=== PATIENT | male | born 1945 | race Caucasian/White ===

== ENCOUNTER 2025-11-05 00:31 | Observation (INO) | payer MEDICARE, SELFPAY ==
[2025-11-05] VITALS (17 sets, daily range): BP systolic 130–208; BP diastolic 69–102; PULSE 60–78; RESP 18–20; TEMP 36.6–37.2; O2SAT 94–98; BMI 27.3; BMI 25.6
--- NOTE | 2025-11-05 00:30 | CT_ITS ---
PROCEDURE INFORMATION: Exam: CT Head Without Contrast Exam date and time: 11/05/2025 12:51 AM Age: 80 years old Clinical indication: Syncope and collapse; Additional info: Syncope, suspect vagal but hypertensive TECHNIQUE: Imaging protocol: Computed tomography of the head without contrast. Radiation optimization: All CT scans at this facility use at least one of these dose optimization techniques: automated exposure control; mA and/or kV adjustment per patient size (includes targeted exams where dose is matched to clinical indication); or iterative reconstruction. COMPARISON: No relevant prior studies available. FINDINGS: Brain: There is mild enlargement of the cortical sulci compatible with compatible with involutional changes . No evidence of mass effect or midline shift. Patchy areas of hypodensity without mass-effect in the periventricular white matter . The alva/white matter interfaces are preserved. There are no extra-axial fluid collections.The basal cisterns are patent. Cerebral ventricles: No hydrocephalus. Paranasal sinuses: Mucosal thickening of the right maxillary sinus. Well aerated. No fluid levels. Mastoid air cells: Visualized mastoid air cells are well aerated. Bones: Unremarkable. No acute fracture. Soft tissues: Unremarkable. IMPRESSION: 1. No evidence of intracranial hemorrhage, mass effect, midline shift or hydrocephalus. 2. Involutional changes. 3. 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 4. Mucosal thickening of the right maxillary sinus.
--- NOTE | 2025-11-05 00:30 | XR_ITS ---
PROCEDURE INFORMATION: Exam: XR Chest Exam date and time: 11/05/2025 12:48 AM Age: 80 years old Clinical indication: Other: Syncope TECHNIQUE: Imaging protocol: Radiologic exam of the chest. Views: 2 views. COMPARISON: No relevant prior studies available. FINDINGS: Lungs: Unremarkable. No consolidation. Pleural spaces: Unremarkable. No pleural effusion. No pneumothorax. Heart/Mediastinum: Unremarkable. No cardiomegaly. Vasculature: Atherosclerotic disease of the aortic arch. Bones/joints: Unremarkable. IMPRESSION: No acute findings.
--- NOTE | 2025-11-05 00:32 | CT_ITS ---
PROCEDURE INFORMATION: Exam: CT Cervical Spine Without Contrast Exam date and time: 11/05/2025 12:56 AM Age: 80 years old Clinical indication: Injury or trauma; Fall; Other: Syncope; Additional info: Fall unwittness syncope TECHNIQUE: Imaging protocol: Computed tomography of the cervical spine without contrast. Radiation optimization: All CT scans at this facility use at least one of these dose optimization techniques: automated exposure control; mA and/or kV adjustment per patient size (includes targeted exams where dose is matched to clinical indication); or iterative reconstruction. COMPARISON: CT HEAD/BRAIN WO CON 11/05/2025 12:51 AM FINDINGS: Bones: No acute fracture. Normal alignment. Disc desiccation and dorsal/lateral osteophytes. No disc herniation. No severe spinal canal stenosis. Foraminal narrowing at C5-C6 and C6-C7. Lungs: Lung apices are normal. Soft tissues: Unremarkable. IMPRESSION: 1. No acute cervical spine fracture. 2. Degenerative changes as described above.
--- OUTSIDE RECORDS SUMMARY | 2025-11-05 00:40 | XMS_ITS | Data Portability ---
Author Organization [facility] [place] [facility] Address [address] [place] [address] Care Team Providers Care Editorial Manager Name Role Phone SUNILCAMRYNCLARENCE Primary Care Provider [phone] MITESH SAINZ Hearing Officer Assessment No assessment recorded. Plan of Treatment Reminders Order Date Submit Date Provider Last Modified By Organization Details Last Modified Time Details Appointments DERM ESTABLISH ED 2025 01:50P M MITESH SAINZ PA-C Not available Not available Not available Lab None recorded. Referral None recorded. Procedures None recorded. Surgeries None recorded. Imaging None recorded. Medication Orders None recorded. Patient TargetsNo targets recorded. Patient InstructionsNo instructions recorded. Reason for Referral None Reported. 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 Lexis Ashby [facility] 3 13:10:49 Multiple benign melanocytic nevi 708086133 [facility] 13:10:49 Seborrheic keratosis 887523776 Active 2022 Lexis Ashby [facility] 3 13:10:49 Scar 921067750 Active 2023 Lexis Ashby [facility] 4 10:17:12 Actinic keratosis 746834672 Active 2023 Lexis santos [facility] 4 10:19:41 Skin tag 464429525 Active 2023 Lexis santos [facility] 4 11:53:53 History of malignant neoplasm of skin 435942783 Active 2024 Lizabeth Vaughn [facility] 5 11:33:26 Problem Notes None recorded. Procedures Surgical History Date Name Laterality Status Provider Name and Address Organization Details Recorded Time 5 DAK - Cryo AK completed Lizabeth Xavierl [facility] 09/06/2025 11:35:44 5 DAK - Cryo AK completed Lizabeth Vaughn [facility] 03/08/2025 11:48:20 4 DAK - Cryo AK [facility]24 11:52:44 4 DAK - Skin Tag Removal completed Lexisjessica Ashby [facility] 08/29/2024 11:53:45 4 DAK - Cryo AK [facility] 02/15/2024 10:19:31 3 DAK - ED&C; trunk,arm,leg completed [facility] 10/07/2023 13:45:22 3 Biopsy Skin Lesion; Tangential completed [facility] 09/16/2023 13:32:28 3 DAK - Cryo AK completed [facility] 09/16/2023 13:41:29 3 Shave Lesion; trunk, arm, leg completed [facility] 09/16/2023 13:29:40 extraction of cataract completed Ela Rico [facility] 02/15/2024 10:00:30 Imaging Results None recorded. Procedure Notes None recorded. Medical Equipment None Reported. Allergies No known drug allergies Medications Name Sig Start Date Stop Date Status Note LastModified by Organization Details LastModified Time doxycycline hyclate 100 mg capsule Take 1 capsule twice a day by oral route with meal(s) for 5 days. 02/14 completed Not Available Not Available Not Available aspirin active Not Available Not Avail able Not Available carvedilol active Not Available Not Av ailable Not Available hydralazine active Not Available Not A vailable Not Available simvastatin active Not Available Not A vailable Not Available losartan active Not Available Not Avai lable Not Available glimepiride active Not Available Not A vailable Not Available Multi Vitamin active Not Available Not Available Not Available Vitals None Recorded Social History Question Answer Notes LastModified by Organizat ion Details LastModified Time Tobacco Smoking Status Never Smoker Lexis Asbhy [facility] 09/16/2023 13:13:24 Sunscreen Use? Yes [email or web address] Informatio n not available 09/16/2023 Tanning Bed Use Yes Previous Information not available 09/16/2023 What Was The Date Of Your Most Recent Tobacco Screening? 09/06/2025 [email or web address] Information not available 09/06/2025 Sex: Male Functional Status Question Answer Note LastModified by Organizat ion Details LastModified Time Do you use any illicit or recreational drugs? No [email or web address] Information not available 09/16/2023 What is your level of alcohol consumption? Occasional [email or web address] Information not available 09/16/2023 Mental Status None recorded. Family History Relationship Description Onset Age of this Age Resolved Age Notes LastModified by Organization Details LastModified Time Father No current problems or disability [email or web address] Not available 02/09 11:33:52 Mother No current problems or disability [email or web address] Not available 02/09 11:33:52 Medical History Condition Response Squamous Cell Carcinoma N Acne N Skin Problems N Other Skin Condition N Varicose Veins N Autoimmune disease N Eczema N Melanoma N Basal Cell Carcinoma Y Skin Cancer Y Past Encounters Encounter ID Performer Location Encounter Start Date Encounter Closed Date Diagnosis/Indication Diagnosis SNOMED-CT Code Diagnosis ICD10 Code Diagnosis IMO Codes Diagnosis Note [id number] MITESH SAINZ PA-C [place] [address] [place] [address] 09/16/2023 12:57:35 09/16/2023 13:57:04 Multiple benign melanocytic nevi 093552754 D22.5 - Benign moles seen on exam today - SPF 30 or higher broad-spec trum sunscreen recommende d with re-applica tion every 2 hours - Discussed sun protection measures, including wide-brimm ed hat, sun-protec tive clothing, and avoidance of sun during peak hours of 10am-4pm - Avoid tanning beds as these can increase the chances of all 3 types of skin cancer - Instructed to monitor for changes and to call us for appointmen t with any changing or worrisome lesions Seborrheic keratosis 394 280190 L82.1 - Benign overgrowth s of skin - Hereditary Senile angioma 7229167 I 78.1 - Benign blood vessel growths - Hereditary Solar lentigo 36835791 L 81.4 - Benign brown spots - Sun-induce d Epidermoid cyst of skin 257772211 L72.0 Cysts are dilated follicles with keratinous material within. Can become inflamed if they rupture. Risks, benefits, side effects, alternativ es and options of excision were discussed with patient and the patient voiced understand ing. Rec no treatment if not bothersome . If it starts to change or become painful let us know. Neoplasm of skin 3434373 04 D49.2 Left Scapula @ T5. Tangential biopsy. R/o: BCC vs. SCC.[place] e Abdomen. Tangential biopsy. R/o: BCC.Left Forearm. Shave removal. R/o: MM vs. SK.Left Neck. Tangential biopsy. R/o: SCC vs. BCC (Mohs if +). Actinic keratosis 007 L57.0 Actinic keratoses are precancero us lesions that may progress to squamous cell carcinoma if untreated. UV light and genetics may increase risk. Treated lesions should blister, scab over, and heal within a few weeks. If treated lesion(s) does not resolve within 1-2 months, patient agrees to follow up for re-evaluat ion. [id number] MITESH SAINZ PA-C [address] [address] 10/07/2023 13:07:23 10/07/2023 13:51:28 Basal cell carcinoma of back 995455487 C44.519 Superficia l BCC - L scapula at t5.Path#: [id number]. ED&C today. Basal cell carcinoma of abdomen 044619602 C44.519 Superficia l BCC - Midline abdomenPat h#: [id number]. ED&C today. Basal cell carcinoma of neck 708376946 C44.41 Left neck - Nodular BCC.Pt is scheduled for Mohs on 01/15/2024 .Pt may call to inquire about a sooner Mohs appt.He reports he will plan on 01/14 surgery for now. [id number] JUAN F REARDON MD [address] [address] 11/13/2023 09:32:24 11/23/2023 11:36:50 [id number] MITESH SAINZ PA-C [address] [address] 02/15/2024 09:46:42 02/15/2024 10:24:44 History of malignant neoplasm of skin 634249694 Z85.828 - 09/2023- No evidence of recurrence today- Call with any worrisome lesions or if treated lesions return- Return at regular intervals for skin exam as recommende d Multiple b enign melanocytic nevi 128536105 D22.5 - Benign moles seen on exam today - SPF 30 or higher broad-spec trum sunscreen recommende d with re-applica tion every 2 hours - Discussed sun protection measures, including wide-brimm ed hat, sun-protec tive clothing, and avoidance of sun during peak hours of 10am-4pm - Avoid tanning beds as these can increase the chances of all 3 types of skin cancer - Instructed to monitor for changes and to call us for appointmen t with any changing or worrisome lesions Seborrheic keratosis 394 664466 L82.1 - Benign overgrowth s of skin - Hereditary Senile angioma 4284569 I 78.1 - Benign blood vessel growths - Hereditary Solar lentigo 87170716 L 81.4 - Benign brown spots - Sun-induce d Scar 720787567 L90.5 Well healing skin at sites of previous ED&C's on abdomen, left scapula.Mo hs site on left neck also well healed. Will f/u with Mohs team as planned. Actinic keratosis 227863 007 L57.0 Actinic keratoses are precancero us lesions that may progress to squamous cell carcinoma if untreated. UV light and genetics may increase risk. Treated lesions should blister, scab over, and heal within a few weeks. If treated lesion(s) does not resolve within 1-2 months, patient agrees to follow up for re-evaluat ion. [id number] JUAN F REARDON MD [address] [address] 02/19/2024 09:01:48 02/22/2024 04:08:14 History of malignant neoplasm of skin 428793295 Z85.828 No evidence of recurrence . Discussed risk of recurrence and new skin cancers, so regular self exam and profession al skin checks are recommende d. Sun protection with broad spectrum SPF 30 sunscreen and broad-brim med hat is recommende d. Sun protection with SPF 30 broad spectrum sunscreen and protective gear discussed. Postoperative visit 1836 02119 Z09 Scar 829365390 L90.5 Rec he get 6 mo fbse regularly [id number] MITESH SAINZ PA-C [address] [address] 08/29/2024 10:55:04 08/29/2024 12:17:58 History of malignant neoplasm of skin 665389954 Z85.828 - 09/2023- No evidence of recurrence today- Call with any worrisome lesions or if treated lesions return- Return at regular intervals for skin exam as recommende d Multiple b enign melanocytic nevi 887042142 D22.5 - Benign moles seen on exam today - SPF 30 or higher broad-spec trum sunscreen recommende d with re-applica tion every 2 hours - Discussed sun protection measures, including wide-brimm ed hat, sun-protec tive clothing, and avoidance of sun during peak hours of 10am-4pm - Avoid tanning beds as these can increase the chances of all 3 types of skin cancer - Instructed to monitor for changes and to call us for appointmen t with any changing or worrisome lesions Seborrheic keratosis 394 213307 L82.1 - Benign overgrowth s of skin - Hereditary Senile angioma 8442088 I 78.1 - Benign blood vessel growths - Hereditary Solar lentigo 46171152 L 81.4 - Benign brown spots - Sun-induce d Actinic keratosis 007 L57.0 Actinic keratoses are precancero us lesions that may progress to squamous cell carcinoma if untreated. UV light and genetics may increase risk. Treated lesions should blister, scab over, and heal within a few weeks. If treated lesion(s) does not resolve within 1-2 months, patient agrees to follow up for re-evaluat ion. Skin tag 191185168 L91.8 L53.8 Skin tags are benign but may be bothersome . Removal with liquid nitrogen is an option. This may leave discolorat ion, or the tag may persist or recur at the treatment site. [id number] MITESH SAINZ PA-C [address] [address] 03/08/2025 10:52:13 03/08/2025 11:53:34 History of malignant neoplasm of skin 928284205 Z85.828 - 09/2023- No evidence of recurrence today- Call with any worrisome lesions or if treated lesions return- Return at regular intervals for skin exam as recommende d Multiple b enign melanocytic nevi 160511593 D22.5 - Benign moles seen on exam today - SPF 30 or higher broad-spec trum sunscreen recommende d with re-applica tion every 2 hours - Discussed sun protection measures, including wide-brimm ed hat, sun-protec tive clothing, and avoidance of sun during peak hours of 10am-4pm - Avoid tanning beds as these can increase the chances of all 3 types of skin cancer - Instructed to monitor for changes and to call us for appointmen t with any changing or worrisome lesions Seborrheic keratosis 394 814773 L82.1 - Benign overgrowth s of skin - Hereditary Senile angioma 8565040 I 78.1 - Benign blood vessel growths - Hereditary Solar lentigo 95836480 L 81.4 - Benign brown spots - Sun-induce d Actinic keratosis 007 L57.0 54689 Actinic keratoses are precancero us lesions that may progress to squamous cell carcinoma if untreated. UV light and genetics may increase risk. Treated lesions should blister, scab over, and heal within a few weeks. If treated lesion(s) does not resolve within 1-2 months, patient agrees to follow up for re-evaluat ion. [id number] MITESH SAINZ PA-C [address] [address] 09/06/2025 10:36:13 09/06/2025 12:21:10 History of malignant neoplasm of skin 300859686 Z85.828 - 09/2023 - 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- No evidence of recurrence today- Call with any worrisome lesions or if treated lesions return- Return at regular intervals for skin exam as recommende d Multiple b enign melanocytic nevi 968566900 D22.5 - Benign moles seen on exam today - SPF 30 or higher broad-spec trum sunscreen recommende d with re-applica tion every 2 hours - Discussed sun protection measures, including wide-brimm ed hat, sun-protec tive clothing, and avoidance of sun during peak hours of 10am-4pm - Avoid tanning beds as these can increase the chances of all 3 types of skin cancer - Instructed to monitor for changes and to call us for appointmen t with any changing or worrisome lesions Seborrheic keratosis 394 959376 L82.1 - Benign overgrowth s of skin - Hereditary Senile angioma 4773848 I 78.1 - Benign blood vessel growths - Hereditary Solar lentigo 39633187 L 81.4 - Benign brown spots - Sun-induce d Actinic keratosis 280886 007 L57.0 47751 Actinic keratoses are precancero us lesions that may progress to squamous cell carcinoma if untreated. UV light and genetics may increase risk. Treated lesions should blister, scab over, and heal within a few weeks. If treated lesion(s) does not resolve within 1-2 months, patient agrees to follow up for re-evaluat ion. Epidermoid cyst of skin 051259937 L72.0 33650 Cysts are dilated follicles with keratinous material within. Can become inflamed if they rupture. Risks, benefits, side effects, alternativ es and options of excision were discussed with patient and the patient voiced understand ing. Rec no treatment if not bothersome . If it starts to change or become painful let us know. Health Concerns Section Related Observation LastModified by Organization Paolo ls LastModified Time None Recorded Concern Status LastModified by Organization Details LastModified Time None Recorded Advance Directives Directive None Recorded Payers Insurance Date Sequence Insurance Name Policy Number Policy Briones Covered Member ID Briones Member ID Guarantor Name 09/03/2025 1 [place] ([place] Jose Luis R [facility] [id number] [facility] 09/11/2025 2 [employer] (MEDICARE SUPPLEMENT) Jose Luis R [facility] [id number] Jose Luis Hunter 10/30/2023 1 *SELF PAY* Ca lvin Hunter Notes Date Note Type Note Provider Name and Address Organization Details Recorded Time 02/15/2024 text/html I am following up on lesionsMidline Abdomen, Left Scapula @ E3Udaxyb proven Sup BCCReports: still red 5 months after ED&C MITESH SAINZ PA-C [address] [place], [address], [facility] 02/15/2024 12:55:43 02/19/2024 text/html ROS as noted in the HPI Here for a follow upMOHS: 4BCCLeft NeckO-Y adv. Flap Marily Lama [facility] 02/19/2024 10:22:59 08/29/2024 text/html Last visit 4Pt is here for 6m fbseHx of BCC - most recent rea of concern: skin tag would like removed if possible MITESH SAINZ PA-C [address] [place], [address], [facility] 08/30/2024 12:19:13 03/08/2025 text/html ROS as noted in the HPI Patient requests a full body skin exam. Location: Full bodyDuration: 6 monthsHistory: BCC (L scapula @T5, L neck, midline abdomen - 09/2023)Areas of concern: no concerns MITESH SAINZ PA-C [address] [place], [address], [facility] 03/10/2025 14:38:37 09/06/2025 text/html Patient requests a FBSE. L ocation: Full bodyLast Skin Check: 03/08/25 (KIET)Hx of 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 (09/16/23) tx w/ ED&C (10/07/23), L neck (09/16/23) tx w/ Mohs (11/13/23)Areas of concern: none MITESH SAINZ PA-C [address] [place], [address], [facility] 09/07/2025 19:44:25
--- OUTSIDE RECORDS SUMMARY | 2025-11-05 00:40 | XMS_ITS | Continuity of Care Document ---
Author Organization [facility] Address [address] [place] [address] Care Team Providers Care Lease Picker Name Role Phone SUNILCLARENCE Primary Care Provider MITESH SAINZ Assembler Erector Assessment No assessment recorded. Plan of Treatment Reminders Order Date Submit Date Provider Last Modified By Organization Details Last Modified Time Details Appointments DERM ESTABLISH ED 2025 01:50P M MITESH SAINZ PAKellie Not available Not available Not available Lab None recorded. Referral None recorded. Procedures None recorded. Surgeries None recorded. Imaging None recorded. Medication Orders None recorded. Patient TargetsNo targets recorded. Patient InstructionsNo instructions recorded. Reason for Referral None Reported. 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 Lexis Ashby [facility] 3 13:10:49 Multiple benign melanocytic nevi 978834001 Active 2022 Lexis Ashby [facility] 3 13:10:49 Seborrheic keratosis 607171289 Active 2022 Lexis Ashby [facility] 3 13:10:49 Scar 142267400 Active 2023 Lexis Ashby [facility] 4 10:17:12 Actinic keratosis 973685254 Active 2023 Lexis Ashby danielle [facility] 4 10:19:41 Skin tag 779361243 Active 2023 Lexis Ashby danielle [facility] 4 11:53:53 History of malignant neoplasm of skin 001906839 [facility] 11:[facility]26 Problem Notes None recorded. Procedures Surgical History Date Name Laterality Status Provider Name and Address Organization Details Recorded Time 5 DAK - Cryo AK completed Lizabeth Xavierl [facility] 09/06/2025 11:35:44 5 DAK - Cryo AK completed Lizabeth Vaughn [facility] 03/08/2025 11:48:20 4 DAK - Cryo AK [facility]/29/2024 11:52:44 4 DAK - Skin Tag Removal completed Lexis Ashby [facility] 08/29/2024 11:53:45 4 DAK - Cryo AK completed Lexisjessica Ashby [facility] 02/15/2024 10:19:31 3 DAK - ED&C; trunk,arm,leg completed [facility] 10/07/2023 13:45:22 3 Biopsy Skin Lesion; Tangential completed [facility] 09/16/2023 13:32:28 3 DAK - Cryo AK completed [facility] 09/16/2023 13:41:29 3 Shave Lesion; trunk, arm, leg completed [facility] 09/16/2023 13:29:40 extraction of cataract completed Ela Rico [facility] 02/15/2024 10:00:30 Imaging Results None recorded. Procedure [...] Time Tobacco Smoking Status Never Smoker Lexis Ashby [facility] 09/16/2023 13:13:24 Sunscreen Use? Yes [email or web address] Informatio n not available 09/16/2023 Tanning Bed Use Yes Previous [email or web address] Information not available 09/16/2023 What Was The Date Of Your Most Recent Tobacco Screening? 09/06/2025 [email or web address] Information not available 09/06/2025 Sex: Male Functional Status Question Answer Note LastModified by Organizat ion Details LastModified Time Do you use any illicit or recreational drugs? No [email or web address] Information not available 09/16/2023 What is your level of alcohol consumption? Occasional [email or web address] Information not available 09/16/2023 Mental Status None recorded. Family History Relationship Description Onset Age of this Age Resolved Age Notes LastModified by Organization Details LastModified Time Father No current problems or disability [email or web address] Not available 02/09 11:33:52 Mother No current problems or disability [email or web address] Not available 02/09 11:33:52 Medical History Condition Response Autoimmune disease N Melanoma N Skin Cancer Y Squamous Cell Carcinoma N Acne N Skin Problems N Other Skin Condition N Varicose Veins N Eczema N Basal Cell Carcinoma Y Past Encounters Encounter ID Performer Location Encounter Start Date Encounter Closed Date Diagnosis/Indication Diagnosis SNOMED-CT Code Diagnosis ICD10 Code Diagnosis IMO Codes Diagnosis Note [id number] MITESH SAINZ PA-C [address] [address] [place] [address] 09/06/2025 10:36:13 09/06/2025 12:21:10 History of malignant neoplasm of skin 858850248 Z85.828 - 09/2023 - 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- No evidence of recurrence today- Call with any worrisome lesions or if treated lesions return- Return at regular intervals for skin exam as recommende d Multiple b enign melanocytic nevi 931021678 D22.5 - Benign moles seen on exam [...] changing or worrisome lesions Seborrheic keratosis 394 065323 L82.1 - Benign overgrowth s of skin - Hereditary Senile angioma 8253744 I 78.1 - Benign blood vessel growths - Hereditary Solar lentigo 35670886 L 81.4 - Benign brown spots - Sun-induce d Actinic keratosis 222092 007 L57.0 10596 Actinic keratoses are precancero us lesions that may progress to squamous cell carcinoma if untreated. UV light and genetics may increase risk. Treated lesions should blister, scab over, and heal within a few weeks. If treated lesion(s) does not resolve within 1-2 months, patient agrees to follow up for re-evaluat ion. Epidermoid cyst of skin 123828179 L72.0 69183 Cysts are dilated follicles with keratinous material within. Can become inflamed if they rupture. Risks, benefits, side effects, alternativ es and options of excision were discussed with patient and the patient voiced understand ing. Rec no treatment if not bothersome . If it starts to change or become painful let us know. Health Concerns Section Related Observation LastModified by Organization Detai ls LastModified Time None Recorded Concern Status LastModified by Organization Details LastModified Time None Recorded Payers Encounter Date Sequence Insurance Name Policy Number Policy Briones Covered Member ID Briones Member ID Guarantor Name 09/06/2025 1 [place]ARE[place] Jose Luis R Campbell [id number] 1 Jose Luis Hunter 09/06/2025 2 [employer] (MEDICARE SUPPLEMENT) Jose Luis R Hunter [id number] Jose Luis Campbell Notes Date Note Type Note Provider Name and Address Organization Details Recorded Time 09/06/2025 text/html Patient requests a FBSE. L ocation: Full bodyLast Skin Check: 03/08/25 (KIET)Hx of 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 (09/16/23) tx w/ ED&C (10/07/23), L neck (09/16/23) tx w/ Mohs (11/13/23)Areas of concern: none MITESH SAINZ PA-C [address] [place], [address], [facility] 09/07/2025 19:44:25
--- NOTE | 2025-11-05 00:45 | HMH.EDGENADL ---
Discharge Plan Disposition Condition: Good Referrals Follow up/Referrals: Mehrdad Dubon MD [Staff Physician, Cardiology] - See instructions Referral Note: had syncope, has HTN, reassuring ER workup but found mildly reduced EF on POCUS Provider,Referral, [Primary Care Provider, Medical] - See instructions Clinical Impressions Clinical Impression: Syncope, Hypoglycemia Print Language Print Language: Irish Discharge ED Provider: Bo Guillen General Adult HPI General Chief complaint: Chest Pain Stated complaint: syncope Time Seen by Provider: 11/05/25 00:41 History of Present Illness HPI narrative: 80-year-old male with history of hypertension, high cholesterol, diabetes not on insulin presents to the ER after syncopal episode. EMS brought the patient to the hospital. Reportedly he has been sick for the last 5 days with nausea, vomiting, diarrhea. In the last 24 hours he has had no episodes of vomiting or diarrhea so he actually went out and about today for the first time in multiple days. He thinks he just overdid it but also did not have much to eat or drink today. He states he only had a sandwich earlier today and nothing else by mouth. Patient reports he went to the restroom thinking he was going to vomit, but he woke up on the floor. Reportedly the patient's was not able to get him up off the floor and so she had called her son who came to get the patient up. When EMS arrived on scene they stated he was still slightly confused, fingerstick blood glucose with them was 78 so EMS administered half bag of D10 and patient had immediate improvement back to baseline. No other medications were administered at that time or during transportation. Patient denies having any chest pain or headache preceding or after the syncopal episode. He states he has never had chest pain and has no heart problems aside from hypertension. He has not had any vomiting or diarrhea. No fevers or chills. No other associated symptoms. He states he feels 100% back to baseline and thinks it was just a problem with him not eating enough earlier today. Related Data Allergies Allergy/AdvReac Type Severity Reaction Status Date / Time No Known Allergies Allergy Verified 11/05/25 01:02 [facility] Disclaimer: The information contained in this section may have been updated after the patient was seen, as this information can be updated by other users. Social History Smoking Status: Never smoker alcohol intake: never current occupational status: other Travel in the last 8 weeks?: None ROS Obtained: Yes Systems reviewed as appropriate & no additional complaints except as documented Per HPI Physical Exam General General appearance: alert and in no apparent distress Head Head exam: atraumatic and normocephalic Eye Eye exam: Present PERRL and EOMI ENT ENT exam: Present mucous membranes moist Neck Neck exam: Present normal inspection and full ROM; Absent tenderness Chest Chest inspection: Present symmetric chest wall rise; Absent tenderness Respiratory Respiratory exam: Present normal lung sounds bilaterally; Absent respiratory distress, wheezes or stridor Cardiovascular Cardiovascular exam: Present regular rate and normal rhythm Abdominal Exam Abdominal exam: Present soft; Absent distention, tenderness, guarding or rebound Extremities Exam Extremities exam: Present full ROM; Absent edema Back Exam Back exam: Absent tenderness Neurological Exam Neurological exam: Present alert and oriented X3; Absent motor sensory deficit Psychiatric Psychiatric exam: Present normal affect and normal mood Skin Skin exam: Present warm and dry Medical Decision Making Medical Records Screening: Per USPSTF and CDC recommendations, given the prevalence of disease in our region, it is our hospital?s policy to screen for HIV and viral Hepatitis for all patients aged 18 and over and those with ongoing risk factors. Roni Inquiry Pt receiving controlled substance: No Vital Signs: 11/05/25 00:38 11/05/25 00:48 11/05/25 01:11 Temperature 98.9 F 98.8 F Temperature Source Oral Pulse Rate 74 68 Pulse Rate [Orthostatic Lying Right] Pulse Rate [Orthostatic Sitting Right] Pulse Rate [Orthostatic Standing Right] Pulse Rate [Right] 71 Respiratory Rate 20 18 Blood Pressure 201/78 H 208/99 H Blood Pressure [Orthostatic Lying Right Arm] Blood Pressure [Orthostatic Sitting Right Arm] Blood Pressure [Orthostatic Standing Right Arm] Blood Pressure [Right Arm] 201/78 H Blood Pressure Mean 135 Blood Pressure Mean [Right Arm] 119 02 Sat by Pulse Oximetry 98 98 96 Oxygen Delivery Method Room Air Room Air 11/05/25 01:30 11/05/25 02:00 11/05/25 02:25 Temperature Temperature Source Pulse Rate 64 60 68 Pulse Rate [Orthostatic Lying Right] Pulse Rate [Orthostatic Sitting Right] Pulse Rate [Orthostatic Standing Right] Pulse Rate [Right] Respiratory Rate Blood Pressure 186/95 H 186/95 H 193/93 H Blood Pressure [Orthostatic Lying Right Arm] Blood Pressure [Orthostatic Sitting Right Arm] Blood Pressure [Orthostatic Standing Right Arm] Blood Pressure [Right Arm] Blood Pressure Mean 125 125 126 Blood Pressure Mean [Right Arm] 02 Sat by Pulse Oximetry 97 97 95 Oxygen Delivery Method 11/05/25 02:27 11/05/25 02:29 11/05/25 02:30 Temperature Temperature Source Pulse Rate 70 67 Pulse Rate [Orthostatic Lying Right] 65 Pulse Rate [Orthostatic Sitting Right] 72 Pulse Rate [Orthostatic Standing Right] 67 Pulse Rate [Right] Respiratory Rate Blood Pressure 200/98 H 186/88 H Blood Pressure [Orthostatic Lying Right Arm] 193/93 H Blood Pressure [Orthostatic Sitting Right Arm] 200/98 H Blood Pressure [Orthostatic Standing Right Arm] 186/88 H Blood Pressure [Right Arm] Blood Pressure Mean 132 120 Blood Pressure Mean [Right Arm] 02 Sat by Pulse Oximetry 95 95 Oxygen Delivery Method 11/05/25 02:31 Temperature Temperature Source Pulse Rate 67 Pulse Rate [Orthostatic Lying Right] Pulse Rate [Orthostatic Sitting Right] Pulse Rate [Orthostatic Standing Right] Pulse Rate [Right] Respiratory Rate Blood Pressure 181/90 H Blood Pressure [Orthostatic Lying Right Arm] Blood Pressure [Orthostatic Sitting Right Arm] Blood Pressure [Orthostatic Standing Right Arm] Blood Pressure [Right Arm] Blood Pressure Mean 120 Blood Pressure Mean [Right Arm] 02 Sat by Pulse Oximetry 96 Oxygen Delivery Method Lab Data Lab Results 11/05/25 01:09: WBC 9.1, RBC 4.34 L, Hgb 14.2, Hct 41.5 L, MCV 95.6 H, MCH 32.7 H, MCHC 34.2, RDW 13.1, Plt Count 175, MPV 10.6 H, Neut % (Auto) 74.3, Lymph % (Auto) 16.4, Casey % (Auto) 8.4, Eos % (Auto) 0.6, Baso % (Auto) 0.1, Neut # (Auto) 6.8, Lymph # (Auto) 1.5, Casey # (Auto) 0.8, Eos # (Auto) 0.1, Baso # (Auto) 0.0, PT 12.7 H, INR 1.16 H, D-Dimer 0.90 H, Sodium 137, Potassium 3.2 L, Chloride 103, Carbon Dioxide 25, Anion Gap 12.2, BUN 23 H, Creatinine 1.00, Estimated Creat Clear 68, Estimated GFR 72, Est GFR ( Amer) 87, Glucose 100, Calcium 8.3 L, Total Bilirubin 1.0, AST 58, ALT 43, Alkaline Phosphatase 47, Troponin I < 0.01, Total Protein 7.5, Albumin 4.2, Globulin 3.3 H, Albumin/Globulin Ratio 1.3 11/05/25 01:09 11/05/25 01:09 Orders (Tests/Meds): ED MEDICATIONS Discontinued Medications Generic Name Dose Route Start Last Admin Trade Name Freq PRN Reason Stop Dose Admin Carvedilol 25 mg 11/05/25 01:38 11/05/25 02:10 Carvedilol 25mg Tablet PO 11/05/25 01:39 25 mg ONCE ONE Administration Hydralazine HCl 100 mg 11/05/25 01:38 11/05/25 02:10 Hydralazine Hcl 25mg Tablet PO 11/05/25 01:39 100 mg ONCE ONE Administration Lactated Ringer's 1,000 mls @ 999 mls/hr 11/05/25 01:36 11/05/25 02:09 Lactated Ringer's 1000 Ml Bag IV 11/05/25 02:36 999 mls/hr .Q1H1M ONE Administration Potassium Chloride 40 meq 11/05/25 02:08 11/05/25 02:11 Potassium Chloride 20meq Tab PO 11/05/25 02:09 40 meq ONCE ONE Administration ORDERS Category Date Time Status CT cervical spine wo con Stat Cat Scan 11/05/25 00:[address] head/brain wo con Stat Cat Scan 11/05/25 00:30 Completed CXR 2 view (NOT portable) [XR chest 2V] Stat Exams 11/05/25 00:30 Completed POCUS Point of Care (ER Only) Stat Exams 11/05/25 00:32 Ordered CBC w/Auto Diff [Complete Blood Count Auto Diff] Stat Lab 11/05/25 01:09 Completed CMP [Comprehensive Metabolic Panel] Stat Lab 11/05/25 01:09 Completed D-Dimer Stat Lab 11/05/25 01:09 Completed PT INR [Prothrombin Time INR] Stat Lab 11/05/25 01:09 Completed Trop I [Troponin I] Stat Lab 11/05/25 01:09 Completed Troponin I Q3H Lab 11/05/25 03:45 Ordered Troponin I Q3H Lab 11/05/25 06:45 Ordered Medical Decision Narrative: In summary, this 80-year-old male with comorbidities described in the HPI presents to the emergency department today with syncopal episode. On initial evaluation patient is hemodynamically stable aside from hypertension, afebrile, GCS 15, no neurologic deficits, neurovascularly intact throughout, no evidence of traumatic injury, benign cardiopulmonary exam, benign abdominal exam, no peripheral edema, remainder of exam benign. Differential diagnosis includes but is not limited to vagal episode, hypoglycemia, electrolyte abnormality, arrhythmia, orthostatic hypotension, I did consider the possibility of ACS or PE though I have low suspicion for these without any chest pain or shortness of breath as well as the patient being hypertensive not hypotensive. I considered the possibility of intracranial bleed since patient is hypertensive but I am very reassured that he does not have headache and had no thunderclap episode prior to his syncopal event. Based on these concerns, I ordered hematologic and serum labs, cardiac workup, chest x-ray, CT imaging. ECG personally interpreted demonstrates normal sinus rhythm, rate 68, normal axis, normal CA and QTc, no STEMI, normal ECG. Patient received IV fluids for treatment. Labs personally reviewed demonstrate no leukocytosis or anemia, normal platelets, PT/INR nonactionable, CMP with trace hypokalemia, patient is receiving oral repletion. Mild prerenal azotemia but patient is already receiving IV fluids. Blood glucose normal at 100, euglycemic. XR personally interpreted demonstrates no acute intrathoracic abnormality, there is the presence of atherosclerotic disease of the aorta, see radiology read for final interpretation.. CT imaging personally interpreted demonstrate no intracranial bleed, mass, or midline shift, no traumatic injury in the cervical spine though there are degenerative changes, see radiology reads for final interpretations.. Troponin undetectably low less than 0.01 significantly reassuring in the setting of normal, nonischemic ECG in the absence of any chest pain preceding or after the syncopal episode. D-dimer 0.9, by years criteria PE is excluded. Orthostatic vitals demonstrated a 12 point drop in systolics from sitting to standing but no associated tachycardia. He did not experience any dizziness or lightheadedness during orthostatics. He is actively receiving IV fluids as well as his home nighttime blood pressure medications. I performed [id number] ultrasound of the heart at bedside which demonstrates no gross wall motion abnormality, no pericardial effusion, good cardiac activity with no right heart strain, it does appear patient has reduced ejection fraction based on my visualization of the mitral valve but he does not have any peripheral edema, shortness of breath, or edema on chest x-ray which is reassuring against CHF. I discussed these findings with the patient and family at bedside and recommended cardiology follow-up. I am placing a referral to Dr. Dubon for outpatient follow-up though patient states he will likely follow-up with his PCP for a referral to a [facility] in [place]. Patient has been independently ambulatory in the ER, he has been asymptomatic with ambulation and while in the ER. His blood pressure has been gradually improving. We did a recheck FSBG that was low at 62 but patient was alert, oriented, asymptomatic. He was given sandwich and orange juice. Recheck blood sugar 69, then on further recheck 20 minutes after that was worsening to 66. D10 bolus and then continuous infusion started. I explained to the patient that I suspect his glimepiride was likely contributing since he had not had anything to eat or drink for multiple days but was still taking this medications daily and this medication went effective stays active in the body for a prolonged period of time, likely causing his hypoglycemia. Ultimately because I cannot get the patient to remain euglycemic with a stable blood sugar, I believe he requires admission to the hospital for further workup. Urinalysis has been added to workup as well as blood cultures ordered. He and family are agreeable to admission. I discussed this case with the hospitalist, Dr. Dubon. After reviewing this case the patient was graciously accepted for admission and admitted in stable condition. Procedures Miscellaneous Procedure Procedure Performed: Limited Cardiac Ultrasound Performed by: Bo Guillen MD Indication: Syncope Identified cardiac views: -Cardiac parasternal long axis -Cardiac parasternal short axis -Cardiac apical four-chamber -Cardiac subxiphoid Findings: Cardiac activity present with no gross wall motion abnormality, no pericardial effusion, no right heart strain. I suspect does have mildly reduced EF based on visualization of the mitral valve Impression: Cardiac activity present with no gross wall motion abnormality, no pericardial effusion, no right heart strain. I suspect does have mildly reduced EF based on visualization of the mitral valve Images were saved to permanent archive The study was technically adequate CPT: 48292 This study was performed by me, and I personally interpreted all images/videos. Based on my clinical judgement, these images were adequate and did not necessitate further imaging. Critical Care Critical Care Time Critical Care Time: Yes Attestation: On 11/05/25, the high probability of a clinically significant, sudden or life threatening deterioration of the following system(s) required my full and direct attention, intervention and personal management. The time I documented below is in addition to time spent performing reported procedures but includes the following listed in this critical care notation. Total Time Total Critical Care Time: 35
--- NOTE | 2025-11-05 01:09 | ECG_ITS ---
APPROVED REPORT Exam: Resting ECG HR:68 bpm ECG Measurements Heart Rate 68 AXES MN 153 P 59 QRSd 110 QRS 71 QT 442 T 56 QTc 459 Conclusion SINUS RHYTHM NORMAL ECG Electronically signed by : JESSICA BARTHOLOMEW, 11/05/2025 07:11:30
[2025-11-05 01:16] LABS: Hematocrit 41.5 % (42.0-52.0); Hemoglobin 14.2 g/dL (14.1-18.0); Immature Granulocytes % 0.2 %; Mean Corpuscular HGB Conc 34.2 g/dL (31.8-35.4); Mean Corpuscular Hemoglobin 32.7 pg (27.0-31.2); Mean Corpuscular Volume 95.6 fl (80-94); Nucleated Red Blood Cells % 0 %; Platelet Count 175 K/mm3 (142-424); Red Blood Count 4.34 M/mm3 (4.60-6.20); Red Cell Distribution Width-SD 46.1 fL; White Blood Count 9.1 K/mm3 (4.8-10.8)
[2025-11-05 01:27] LABS: Alanine Aminotransferase 43 U/L (12-78); Albumin Level 4.2 g/dl (3.5-5.0); Albumin/Globulin Ratio 1.3 (1.1-1.8); Alkaline Phosphatase 47 U/L (38-126); Anion Gap 12.2 mEq/L (5-15); Aspartate Amino Transferase 58 U/L (17-59); Bilirubin,Total 1.0 mg/dl (0.2-1.3); Blood Urea Nitrogen 23 mg/dl (9-20); Calcium 8.3 mg/dl (8.4-10.2); Carbon Dioxide 25 mmol/L (22.0-30.0); Chloride 103 mmol/L (98-107); Creatinine Clearance Estimated 68 mL/min (50-200); Creatinine,Serum 1.00 mg/dl (0.66-1.25); Estimated Glomerular Filt Rate 72 ml/min (>60); GFR (African American) 87 ML/MIN (>60); Globulin 3.3 g/dL (1.3-3.2); Glucose 100 mg/dl (74-100); Potassium 3.2 mmoL/L (3.5-5.1); Sodium 137 mmol/L (136-145); Total Protein,Serum 7.5 g/dl (6.3-8.2)
[2025-11-05 01:34] LABS: INR 1.16 (0.9-1.1); Prothrombin Time 12.7 seconds (10.1-12.5)
[2025-11-05 01:40] LABS: D-Dimer 0.90 ug/mL (0.0-0.5)
[2025-11-05 02:04] LABS: Troponin I < 0.01 ng/ml (0.00-0.034)
[2025-11-05] MEDS: LACTATED RINGERS 1000ML 1,000 ML 999 ML IV (02:09)
[2025-11-05] MEDS: HYDRALAZINE HCL 25MG TABLET 100 MG PO (02:10)
[2025-11-05] MEDS: CARVEDILOL 25MG TABLET 25 MG PO (02:10)
[2025-11-05] MEDS: POTASSIUM CHLORIDE 20MEQ TAB 40 MEQ PO (02:11)
--- NOTE | 2025-11-05 02:50 | PC.NURSE ---
FSBS 62 at this time
--- NOTE | 2025-11-05 02:51 | PC.NURSE ---
pt assisted to the bathroom at this time, upon return FSBG performed. Chicken salad sandwich and orange juice given.
--- NOTE | 2025-11-05 02:53 | PC.NURSE ---
lizabeth cordero called from lab. santizo notified at [phone]
--- NOTE | 2025-11-05 03:04 | PC.NURSE ---
fsbs was 69 at [phone]
[2025-11-05] MEDS: DEXTROSE 10 % IN WATER 500 ML 75 ML IV (03:25)
[2025-11-05 03:32] LABS: Microscopic, Urine URINE MICROSCOPIC (MICROSCOPIC)
[2025-11-05 03:34] LABS: Bilirubin,Urine Negative (Negative); Color,Urine YELLOW (Yellow); Glucose,Urine (UA) Negative (Negative); Ketones,Urine Negative (Negative); Leukocyte Esterase,Urine Negative (Negative); PH,Urine 7.0 (5.0-8.5); Protein,Urine Negative (Negative); Specific Gravity, Urine 1.010 (1.005-1.030); Urobilinogen,Urine 0.2 EU/dl (0.2)
[2025-11-05 03:40] LABS: Bacteria,Urine Trace /lpf; RBC,Urine Occasional #/hpf (0-3); Squamous Epithelial Cell,Urine Occasional #/hpf (0-5); WBC,Urine Occasional #/hpf (0-3)
--- NOTE | 2025-11-05 03:49 | PC.NURSE ---
repeat trop sent
[2025-11-05 04:13] LABS: Troponin I < 0.01 ng/ml (0.00-0.034)
[2025-11-05 04:59] LABS: POC Glucose,Bedside 143 gm/dL (70-110)
--- NOTE | 2025-11-05 06:24 | EXP.HP ---
History of Present Illness *Admission Date: 11/05/25 *Reason for visit:: hypoglycemia *History of present illness: 80-year-old male with history of hypertension, high cholesterol, diabetes not on insulin presents to the ER after syncopal episode. EMS brought the patient to the hospital. Reportedly he has been sick for the last 5 days with nausea, vomiting, diarrhea. Patient reports he went to the restroom thinking he was going to vomit, but he woke up on the floor. Reportedly the patient's was not able to get him up off the floor and so she had called her son who came to get the patient up. When EMS arrived on scene they stated he was still slightly confused, fingerstick blood glucose with them was 78 so EMS administered half bag of D10 and patient had immediate improvement back to baseline. No other medications were administered at that time or during transportation. In the ED [facility]SB[facility] that was low at 62. He was given sandwich and orange juice. Recheck blood sugar 69, then on further recheck 20 minutes after that was worsening to 66. D10 bolus and then continuous infusion started. ED contacted me for admission for persistent hypoglycemia and need for continuos dextrose. Pt currently asymnptomatic doing well. no other concerns or complaints [facility] Disclaimer: The information contained in this section may have been updated after the patient was seen, as this information can be updated by other users. Social History (Updated 11/05/25 @ 03:28 by Bo Guillen MD) Smoking Status: Never smoker alcohol intake: never current occupational status: other Travel in the last 8 weeks?: None Other Medical History Have you received the Flu Vaccine for this season: Yes Have you received the Pneumonia Vaccine: Yes Review of Systems Review of Systems Review of systems:: unable to obtain Constitutional Constitutional: Reports system reviewed and no additional complaints, except as documented Eyes Eyes: Reports system reviewed and no additional complaints, except as documented ENT Ears, Nose, Mouth, and Throat: Reports system reviewed and no additional complaints, except as documented *Cardiovascular Cardiovascular: Reports system reviewed and no additional complaints, except as documented *Gastrointestinal Gastrointestinal: Reports system reviewed and no additional complaints, except as documented *Musculoskeletal Musculoskeletal: Reports system reviewed and no additional complaints, except as documented *Neurologic Neurologic: Reports system reviewed and no additional complaints, except as documented Meds Home Medications and Allergies Home Medications ?Medication ?Instructions ?Recorded ?Confirmed ?Type aspirin 81 mg capsule 81 mg PO HS 11/05/25 11/05/25 History carvedilol 25 mg tablet 25 mg PO BID 11/05/25 11/05/25 History doxazosin 8 mg tablet 8 mg PO DAILY 11/05/25 11/05/25 History glimepiride 4 mg tablet 4 mg PO DAILY 11/05/25 11/05/25 History hydralazine 100 mg tablet 100 mg PO BID 11/05/25 11/05/25 History losartan 100 1 tab PO DAILY 11/05/25 11/05/25 History mg-hydrochlorothiazide 25 mg tablet simvastatin 40 mg tablet 40 mg PO HS 11/05/25 11/05/25 History New Prescriptions to Start Prescriptions: Allergies Allergy/AdvReac Type Severity Reaction Status Date / Time No Known Allergies Allergy Verified 11/05/25 01:02 Exam Data for Last 24 hours Vital signs and Labs for Last 24 Hours: Temp Pulse Resp BP Pulse Ox O2 Del Method 98.2 F 70 20 164/77 H 94 L Room Air 11/05/25 05:10 11/05/25 05:10 11/05/25 05:10 11/05/25 05:10 11/05/25 05:10 11/05/25 05:10 Laboratory Results - last 24 hr 11/05/25 01:05: Urine Color Yellow, Urine Appearance Clear, Urine pH 7.0, Ur Specific [place] 1.010, Urine Protein Negative, Urine Glucose (UA) Negative, Urine Ketones Negative, Urine Blood Negative, Urine Nitrate Negative, Urine Bilirubin Negative, Urine Urobilinogen 0.2, Ur Leukocyte Esterase Negative, Urine RBC Occasional, Urine WBC Occasional, Ur Squamous Epith Cells Occasional, Urine Bacteria Trace 11/05/25 01:09: WBC 9.1, RBC 4.34 L, Hgb 14.2, Hct 41.5 L, MCV 95.6 H, MCH 32.7 H, MCHC 34.2, RDW 13.1, Plt Count 175, MPV 10.6 H, Neut % (Auto) 74.3, Lymph % (Auto) 16.4, [place] % (Auto) 8.4, Eos % (Auto) 0.6, Baso % (Auto) 0.1, Neut # (Auto) 6.8, Lymph # (Auto) 1.5, [place] # (Auto) 0.8, Eos # (Auto) 0.1, Baso # (Auto) 0.0, PT 12.7 H, INR 1.16 H, D-Dimer 0.90 H, Sodium 137, Potassium 3.2 L, Chloride 103, Carbon Dioxide 25, Anion Gap 12.2, BUN 23 H, Creatinine 1.00, Estimated Creat Clear 68, Estimated GFR 72, Est GFR ( Amer) 87, Glucose 100, Calcium 8.3 L, Total Bilirubin 1.0, AST 58, ALT 43, Alkaline Phosphatase 47, Troponin I < 0.01, Total Protein 7.5, Albumin 4.2, Globulin 3.3 H, Albumin/Globulin Ratio 1.3 11/05/25 03:47: Troponin I < 0.01 11/05/25 04:52: POC Glucose 143 H I & O for Last 24 hours: Intake & Output 11/02/25 11/03/25 11/04/25 11/05/25 23:59 23:59 23:59 23:59 Intake Total 1000 / 1000 Output Total 0 / 0 Balance 1000 / 1000 Weight 76.702 kg Constitutional Constitutional: no acute distress *Routine HEENT Exam Head: Present normocephalic Eye: Present EOMI and PERRL ENT: Present mucous membranes moist *Routine Neck Exam Neck: Present supple; Absent lymphadenopathy *Routine Respiratory Exam Respiratory: Present CTA bilaterally *Routine Cardiovascular Exam Cardiovascular: Present RRR *Routine Abdominal Exam Abdominal: Present soft and normoactive bowel sounds; Absent tenderness *Routine Rectal Exam Rectal:: deferred *Routine Genitalia Exam Genitalia:: deferred *Routine Extremities Exam Extremities: Absent cyanosis, clubbing or edema *Routine Skin Exam Skin: Present warm; Absent rash *Routine Neurological Exam Neurological: Present alert and oriented X3 Assessment and Plan *Assessment and plan (1) Hypoglycemia: Status: Acute Category: Medical Code(s): E16.2 - Hypoglycemia, unspecified Plan persistent hypoglycemia secondary to sulfonylurea - multiple episodes of hypoglycemia, one with syncope at home - started on d10 in ED - continue for a few hours, if next bs normal pepe stop gtt and monitor - if remains normal will discharge home - discontinue glimepiride on discharge
[2025-11-05 06:41] LABS: Hematocrit 38.7 % (42.0-52.0); Hemoglobin 13.0 g/dL (14.1-18.0); Immature Granulocytes % 0.1 %; Mean Corpuscular HGB Conc 33.6 g/dL (31.8-35.4); Mean Corpuscular Hemoglobin 32.1 pg (27.0-31.2); Mean Corpuscular Volume 95.6 fl (80-94); Nucleated Red Blood Cells % 0 %; Platelet Count 167 K/mm3 (142-424); Red Blood Count 4.05 M/mm3 (4.60-6.20); Red Cell Distribution Width-SD 46.7 fL; White Blood Count 6.8 K/mm3 (4.8-10.8)
[2025-11-05 06:43] LABS: Albumin Level 3.7 g/dl (3.5-5.0); Chloride 108 mmol/L (98-107)
[2025-11-05 06:44] LABS: Potassium 3.3 mmoL/L (3.5-5.1); Sodium 138 mmol/L (136-145)
[2025-11-05 06:46] LABS: Alanine Aminotransferase 36 U/L (12-78); Albumin/Globulin Ratio 1.3 (1.1-1.8); Anion Gap 10.3 mEq/L (5-15); Aspartate Amino Transferase 48 U/L (17-59); Blood Urea Nitrogen 20 mg/dl (9-20); Carbon Dioxide 23 mmol/L (22.0-30.0); Creatinine Clearance Estimated 64 mL/min (50-200); Creatinine,Serum 0.90 mg/dl (0.66-1.25); Estimated Glomerular Filt Rate 81 ml/min (>60); GFR (African American) 98 ML/MIN (>60); Globulin 2.8 g/dL (1.3-3.2); Total Protein,Serum 6.5 g/dl (6.3-8.2)
[2025-11-05 06:47] LABS: Alkaline Phosphatase 45 U/L (38-126); Bilirubin,Total 0.5 mg/dl (0.2-1.3); Calcium 8.4 mg/dl (8.4-10.2); Glucose 138 mg/dl (74-100); Magnesium 2.5 mg/dl (1.6-2.3)
[2025-11-05 06:58] LABS: Phosphorous 1.8 mg/dl (2.5-4.5)
[2025-11-05 06:59] LABS: Troponin I < 0.01 ng/ml (0.00-0.034)
[2025-11-05] MEDS: SODIUM PHOSPHATE 15 MMOL in 0.9 % SODIUM CHLORIDE 250 ML 63.75 MMOL IV (08:45)
[2025-11-05] MEDS: SODIUM CHLORIDE 0.9% 10ML FLUSH SYRINGE 10 ML IV (08:51)
--- NOTE | 2025-11-05 09:59 | EXP.DC.SUM ---
General Admission date:: 11/05/25 HPI HPI HPI: 80-year-old male with history of hypertension, high cholesterol, diabetes not on insulin presents to the ER after syncopal episode. EMS brought the patient to the hospital. Reportedly he has been sick for the last 5 days with nausea, vomiting, diarrhea. Patient reports he went to the restroom thinking he was going to vomit, but he woke up on the floor. Reportedly the patient's was not able to get him up off the floor and so she had called her son who came to get the patient up. When EMS arrived on scene they stated he was still slightly confused, fingerstick blood glucose with them was 78 so EMS administered half bag of D10 and patient had immediate improvement back to baseline. No other medications were administered at that time or during transportation. In the ED FSBG that was low at 62. He was given sandwich and orange juice. Recheck blood sugar 69, then on further recheck 20 minutes after that was worsening to 66. D10 bolus and then continuous infusion started. ED contacted me for admission for persistent hypoglycemia and need for continuos dextrose. Pt currently asymnptomatic doing well. no other concerns or complaints Hospital Course Hospital Course Hospital Course: Jose Luis Harrison is a 88-year-old male with a medical history significant for type 2 diabetes taking glimepiride who presented with with an episode of dizziness, syncope at home. He states he has been feeling weak over the past few days with nausea/vomiting/diarrhea, has not been eating much, continue to take). On arrival, patient's blood sugar was in the 60s and was started on D10 drip by the ED. This was shortly discontinued after admission, and patient's blood sugars were monitored closely with improvement in both blood sugars and symptoms. No further episodes of syncope, and no arrhythmias on nurse monitoring. Low suspicion for cardiogenic syncope. CT head unremarkable. No other pertinent metabolic findings. Advised patient to hold glimepiride until follow-up with PCP within 1 week. Patient agreeable to this plan. Exam Data for Last 24 hours Vital signs and Labs for Last 24 Hours: Temp Pulse Resp BP Pulse Ox O2 Del Method 98.5 F 66 18 130/69 96 Room Air 11/05/25 08:00 11/05/25 08:00 11/05/25 08:00 11/05/25 08:00 11/05/25 08:00 11/05/25 09:00 Laboratory Results - last 24 hr 11/05/25 01:05: Urine Color Yellow, Urine Appearance Clear, Urine pH 7.0, Ur Specific [place] 1.010, Urine Protein Negative, Urine Glucose (UA) Negative, Urine Ketones Negative, Urine Blood Negative, Urine Nitrate Negative, Urine Bilirubin Negative, Urine Urobilinogen 0.2, Ur Leukocyte Esterase Negative, Urine RBC Occasional, Urine WBC Occasional, Ur Squamous Epith Cells Occasional, Urine Bacteria Trace 11/05/25 01:09: WBC 9.1, RBC 4.34 L, Hgb 14.2, Hct 41.5 L, MCV 95.6 H, MCH 32.7 H, MCHC 34.2, RDW 13.1, Plt Count 175, MPV 10.6 H, Neut % (Auto) 74.3, Lymph % (Auto) 16.4, [place] % (Auto) 8.4, Eos % (Auto) 0.6, Baso % (Auto) 0.1, Neut # (Auto) 6.8, Lymph # (Auto) 1.5, [place] # (Auto) 0.8, Eos # (Auto) 0.1, Baso # (Auto) 0.0, PT 12.7 H, INR 1.16 H, D-Dimer 0.90 H, Sodium 137, Potassium 3.2 L, Chloride 103, Carbon Dioxide 25, Anion Gap 12.2, BUN 23 H, Creatinine 1.00, Estimated Creat Clear 68, Estimated GFR 72, Est GFR ( Amer) 87, Glucose 100, Calcium 8.3 L, Total Bilirubin 1.0, AST 58, ALT 43, Alkaline Phosphatase 47, Troponin I < 0.01, Total Protein 7.5, Albumin 4.2, Globulin 3.3 H, Albumin/Globulin Ratio 1.3 11/05/25 03:47: Troponin I < 0.01 11/05/25 04:52: POC Glucose 143 H 11/05/25 06:10: WBC 6.8 D, RBC 4.05 L, Hgb 13.0 L, Hct 38.7 L, MCV 95.6 H, MCH 32.1 H, MCHC 33.6, RDW 13.2, Plt Count 167, MPV 11.1 H, Neut % (Auto) 63.0, Lymph % (Auto) 24.1, [place] % (Auto) 12.2 H, Eos % (Auto) 0.3, Baso % (Auto) 0.3, Neut # (Auto) 4.3, Lymph # (Auto) 1.6, [place] # (Auto) 0.8, Eos # (Auto) 0.0, Baso # (Auto) 0.0, Sodium 138, Potassium 3.3 L, Chloride 108 H, Carbon Dioxide 23, Anion Gap 10.3, BUN 20, Creatinine 0.90, Estimated Creat Clear 64, Estimated GFR 81, Est GFR ( Amer) 98, Glucose 138 H D, Calcium 8.4, Phosphorus 1.8 L, Magnesium 2.5 H, Total Bilirubin 0.5, AST 48, ALT 36, Alkaline Phosphatase 45, Troponin I < 0.01, Total Protein 6.5, Albumin 3.7 D, Globulin 2.8, Albumin/Globulin Ratio 1.3 I & O for Last 24 hours: Intake & Output 11/02/25 11/03/25 11/04/25 11/05/25 23:59 23:59 23:59 23:59 Intake Total 1360 / 1360 Output Total 0 / 0 Balance 1360 / 1360 Weight 76.702 kg Constitutional Constitutional: no acute distress *Routine HEENT Exam Head: Present normocephalic Eye: Present EOMI and PERRL ENT: Present mucous membranes moist *Routine Neck Exam Neck: Present supple; Absent lymphadenopathy *Routine Respiratory Exam Respiratory: Present CTA bilaterally *Routine Cardiovascular Exam Cardiovascular: Present RRR *Routine Abdominal Exam Abdominal: Present soft and normoactive bowel sounds; Absent tenderness *Routine Extremities Exam Extremities: Absent cyanosis, clubbing or edema *Routine Skin Exam Skin: Present warm; Absent rash *Routine Neurological Exam Neurological: Present alert and oriented X3 Results Data Completed and Pending Labs on day of discharge: Labs from last 24 hours 11/05/25 11/05/25 11/05/25 06:10 04:52 03:47 WBC 6.8 D RBC 4.05 L Hgb 13.0 L Hct 38.7 L MCV 95.6 H MCH 32.1 H MCHC 33.6 RDW 13.2 Plt Count 167 MPV 11.1 H Neut % (Auto) 63.0 Lymph % (Auto) 24.1 [place] % (Auto) 12.2 H Eos % (Auto) 0.3 Baso % (Auto) 0.3 Neut # (Auto) 4.3 Lymph # (Auto) 1.6 [place] # (Auto) 0.8 Eos # (Auto) 0.0 Baso # (Auto) 0.0 PT INR D-Dimer Sodium 138 Potassium 3.3 L Chloride 108 H Carbon Dioxide 23 Anion Gap 10.3 BUN 20 Creatinine 0.90 Estimated Creat Clear 64 Estimated GFR 81 Est GFR ( Amer) 98 Glucose 138 H D POC Glucose 143 H Calcium 8.4 Phosphorus 1.8 L Magnesium 2.5 H Total Bilirubin 0.5 AST 48 ALT 36 Alkaline Phosphatase 45 Troponin I < 0.01 < 0.01 Total Protein 6.5 Albumin 3.7 D Globulin 2.8 Albumin/Globulin Ratio 1.3 Urine Color Urine Appearance Urine pH Ur Specific [place] Urine Protein Urine Glucose (UA) Urine Ketones Urine Blood Urine Nitrate Urine Bilirubin Urine Urobilinogen Ur Leukocyte Esterase Urine RBC Urine WBC Ur Squamous Epith Cells Urine Bacteria 11/05/25 11/05/25 01:09 01:05 WBC 9.1 RBC 4.34 L Hgb 14.2 Hct 41.5 L MCV 95.6 H MCH 32.7 H MCHC 34.2 RDW 13.1 Plt Count 175 MPV 10.6 H Neut % (Auto) 74.3 Lymph % (Auto) 16.4 [place] % (Auto) 8.4 Eos % (Auto) 0.6 Baso % (Auto) 0.1 Neut # (Auto) 6.8 Lymph # (Auto) 1.5 [place] # (Auto) 0.8 Eos # (Auto) 0.1 Baso # (Auto) 0.0 PT 12.7 H INR 1.16 H D-Dimer 0.90 H Sodium 137 Potassium 3.2 L Chloride 103 Carbon Dioxide 25 Anion Gap 12.2 BUN 23 H Creatinine 1.00 Estimated Creat Clear 68 Estimated GFR 72 Est GFR ( Amer) 87 Glucose 100 POC Glucose Calcium 8.3 L Phosphorus Magnesium Total Bilirubin 1.0 AST 58 ALT 43 Alkaline Phosphatase 47 Troponin I < 0.01 Total Protein 7.5 Albumin 4.2 Globulin 3.3 H Albumin/Globulin Ratio 1.3 Urine Color Yellow Urine Appearance Clear Urine pH 7.0 Ur Specific [place] 1.010 Urine Protein Negative Urine Glucose (UA) Negative Urine Ketones Negative Urine Blood Negative Urine Nitrate Negative Urine Bilirubin Negative Urine Urobilinogen 0.2 Ur Leukocyte Esterase Negative Urine RBC Occasional Urine WBC Occasional Ur Squamous Epith Cells Occasional Urine Bacteria Trace DS: Diagnosis Discharge Diagnosis (1) Hypoglycemia: Status: Acute Code(s): E16.2 - Hypoglycemia, unspecified (2) Type 2 diabetes mellitus: Status: Acute Code(s): E11.9 - Type 2 diabetes mellitus without complications Meds Home Medications and Allergies Home Medications ?Medication ?Instructions ?Recorded ?Confirmed ?Type aspirin 81 mg capsule 81 mg PO HS 11/05/25 11/05/25 History carvedilol 25 mg tablet 25 mg PO BID 11/05/25 11/05/25 History Held on 11/05/25. Instructions: Resume on 11/12/25. Your blood pressures were stable without this medication, follow-up with your PCP to discuss restarting his medication. doxazosin 8 mg tablet 8 mg PO DAILY 11/05/25 11/05/25 History glimepiride 4 mg tablet 4 mg PO DAILY 11/05/25 11/05/25 History Held on 11/05/25. Instructions: Resume on 12/03/25. Please hold this medication until follow-up with PCP. This medication can cause low blood sugars. hydralazine 100 mg tablet 100 mg PO BID 11/05/25 11/05/25 History losartan 100 1 tab PO DAILY 11/05/25 11/05/25 History mg-hydrochlorothiazide 25 mg tablet ondansetron HCl 4 mg tablet 4 mg PO Q6H PRN nausea and 11/05/25 Rx vomiting #10 tabs simvastatin 40 mg tablet 40 mg PO HS 11/05/25 11/05/25 History New Prescriptions to Start Prescriptions: ondansetron HCl Brice Rowell Allergies Allergy/AdvReac Type Severity Reaction Status Date / Time No Known Allergies Allergy Verified 11/05/25 01:02 Discharge Plan Disposition Patient Disposition: Home, Self-Care Condition: Fair Follow up Plan Follow up with: Kanu Curry [Primary Care Provider, Medical] - 1 week Prescriptions/Medication Reconciliation: New ondansetron HCl 4 mg tablet 4 mg PO Q6H PRN (Reason: nausea and vomiting) Qty: 10 0RF Continued simvastatin 40 mg Tablet 40 mg PO HS losartan-hydrochlorothiazide 100-25 mg Tablet 1 tab PO DAILY doxazosin 8 mg tablet 8 mg PO DAILY hydralazine 100 mg tablet 100 mg PO BID aspirin 81 mg Capsule 81 mg PO HS Held carvedilol 25 mg tablet 25 mg PO BID Hold Instructions: Resume on 11/12/25. Your blood pressures were stable without this medication, follow-up with your PCP to discuss restarting his medication. glimepiride 4 mg tablet 4 mg PO DAILY Hold Instructions: Resume on 12/03/25. Please hold this medication until follow-up with PCP. This medication can cause low blood sugars. Problem Reconciliation Problems Reviewed?: Yes Patient Discharge Instructions Print Language: [place] Providers Primary Care Provider: Kanu Curry Admit Provider: Brice Rowell Attending Provider: Brice Rowell
[2025-11-05 11:37] LABS: POC Glucose,Bedside 76 gm/dL (70-110)
--- NOTE | 2025-11-06 10:21 | SW/DCPLANNER ---
Spoke with patient on the phone. Patient stated that he is doing well. Patient stated that he is going to call his primary care provider to schedule a follow up appointment. Patient stated that he was able to get his new medicine. Patient stated that he has no concerns or questions at this time. Amanda Cagle
== END 2025-11-05 11:45 | disposition home or self-care (01) ==
LOC: ER 02:45 → 2ND 03:38
PROVIDERS: Student in an Organized Health Care Education/Training Program; Admitting Provider Student in an Organized Health Care Education/Training Program; Emergency Provider Emergency Medicine; PCP Family Medicine; Visit Provider Student in an Organized Health Care Education/Training Program
DX: E11.649 Type 2 diabetes mellitus with hypoglycemia without coma (principal); Z79.899 Other long term (current) drug therapy; Z79.82 Long term (current) use of aspirin; I10 Essential (primary) hypertension; E78.00 Pure hypercholesterolemia, unspecified; M47.812 Spondylosis without myelopathy or radiculopathy, cervical region; R55 Syncope and collapse; J34.89 Other specified disorders of nose and nasal sinuses
CPT/HCPCS: 36415; 70450; 71046; 72125; 80053; 81001; 82962; 83735; 84100; 84484; 85025; 85378; 85610; 87040; 93005; 99285; G0378; J7050; J7120